=== PATIENT | female | born 1975 | race Caucasian/White ===

== ENCOUNTER 2017-11-21 13:12 | Day surgery (SDC) | payer OTHER ==
[~2017-11-21] VITALS: Ht 149.9 cm; Wt 79.4 kg
[2017-11-21 11:57] VITALS: BP 131/94
[2017-11-21 17:13] VITALS: BP 115/74
== END 2017-11-21 16:45 | disposition home or self-care (01) ==
LOC: DS 13:12
PROVIDERS: Obstetrics & Gynecology
PROC: 0UDB8ZZ Extraction of Endometrium, Via Natural or Artificial Opening Endoscopic (ICD-10-PCS; 2017-11-21)
PROC: 0U5B8ZZ Destruction of Endometrium, Via Natural or Artificial Opening Endoscopic (ICD-10-PCS; principal; 2017-11-21 13:30)
DX: N92.1 Excessive and frequent menstruation with irregular cycle (principal)
CPT/HCPCS: J2175; J2250; J2270; J2405; J2704; J3010; J3490; J7120

== ENCOUNTER 2017-12-01 11:10 | Emergency (ER) | payer BC ==
[~2017-12-01] VITALS: Ht 149.9 cm; Wt 87.2 kg
[2017-12-01 11:27] VITALS: Ht 149.9 cm; Wt 87.2 kg
[2017-12-01 12:01] LABS: BASOPHIL % 0.8 % (0-2); PLATELET COUNT 215 x10^3mcL (130-400)
[2017-12-01 12:25] LABS: rbc morphology (normal/abnorm) ABNORMAL (NORMAL); tear drop cell (dacryocyte) 1+
[2017-12-01 13:35] LABS: microscopic required? YES
[2017-12-01 13:36] LABS: UA SPECIFIC GRAVITY <1.005 (1.005-1.035)
[2017-12-01 13:38] LABS: urine erythrocyte 3+ (NEGATIVE)
[2017-12-01 13:55] VITALS: BP 122/64
== END 2017-12-01 13:55 | disposition home or self-care (01) ==
LOC: ED 11:10
PROVIDERS: Emergency Medicine
DX: S46.911A Strain of unspecified muscle, fascia and tendon at shoulder and upper arm level, right arm, initial encounter (principal); N93.9 Abnormal uterine and vaginal bleeding, unspecified; D50.9 Iron deficiency anemia, unspecified; F41.9 Anxiety disorder, unspecified; W17.89XA Other fall from one level to another, initial encounter; Y93.89 Activity, other specified; Y92.89 Other specified places as the place of occurrence of the external cause; Y99.8 Other external cause status
CPT/HCPCS: 36415